=== PATIENT | male | born 2000 | race Caucasian/White ===

== ENCOUNTER 2024-11-28 16:32 | Emergency (ER) | payer BC, OTHER ==
[2024-11-28] MEDS ORDERED: Boostrix 0.5 ML (Tdap) VIAL (>/=7 yrs of age) ONE (17:35)
[2024-11-28] MEDS ORDERED: cefTRIAXone (ROCEPHIN) 1 GM VIAL ONE (17:35)
[2024-11-28] MEDS ORDERED: HYDROcodone/Acetaminophen 10/325 mg Tablet ONE (17:35)
[2024-11-28] MEDS ORDERED: Lidocaine 1% PF 5 ML VIAL ONE (17:35)
== END 2024-11-28 18:06 | disposition home or self-care (01) ==
LOC: CSHERS 16:32
DX: L05.91 Pilonidal cyst without abscess (principal)
CPT/HCPCS: 90471; 90715; 96372; J0696